=== PATIENT | female | born 1965 | race Caucasian/White ===

== ENCOUNTER 2018-04-13 06:38 | Emergency (ER) | END 2018-04-13 08:40 | disposition home or self-care (01) ==

== ENCOUNTER 2018-11-10 11:55 | Emergency (ER) | payer SELFPAY ==
[~2018-11-10] VITALS: Ht 167.6 cm; Wt 65.9 kg
[~2018-11-10 11:55] MED LIST: DOXY100T20 PO; FLUC150T PO; IBUP-1542 PO; METF-849; NAPR-985 PO
[2018-11-10 11:59] VITALS: BP 164/95; PULSE 85; RESP 19; Ht 167.6 cm; Wt 65.9 kg
[2018-11-10] MEDS ORDERED: CEPH-443 PO (12:45)
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
[2018-11-10] MEDS ORDERED: FLUCONAZOLE 150 MG TAB PO ONE (13:00)
== END 2018-11-10 13:00 | disposition home or self-care (01) ==
LOC: FTE 11:55
DX: R30.0 Dysuria (principal); F17.210 Nicotine dependence, cigarettes, uncomplicated; E11.9 Type 2 diabetes mellitus without complications; Z79.84 Long term (current) use of oral hypoglycemic drugs
CPT/HCPCS: 81003; 87086